=== PATIENT | female | born 1945 | race Caucasian/White ===

== ENCOUNTER → 2016-12-04 | Outpatient (CLI) | payer OTHER, BC | LOC: MMPC 09:00 | PROVIDERS: ATTEND Family Medicine | DX: K64.8 Other hemorrhoids (principal); J45.998 Other asthma; L40.8 Other psoriasis | CPT/HCPCS: 99213; G0463 ==

== ENCOUNTER → 2016-12-10 | Outpatient (CLI) | payer OTHER, BC | LOC: MMPC 11:11 | PROVIDERS: ATTEND Surgery | DX: K64.8 Other hemorrhoids (principal); Z86.010 Personal history of colon polyps | CPT/HCPCS: 99202 ==

== ENCOUNTER 2017-01-11 11:25 | Day surgery (SDC) | payer OTHER, BC ==
[~2017-01-11 11:25] MED LIST: LIDOCAINE W/ SODIUM BICARB 0.5 ML SYR ONE; Lactated Ringers 1,000 ML PRIMARY IV ONE; fentaNYL Inj 100 MCG/2 ML VIAL ONE
--- NOTE | 2017-01-11 13:01 | GEN.OPNOTE ---
Colonoscopy Procedure Note Surgery Date: 01/11/17 Preoperative Diagnosis: Rectal bleeding need for screening colonoscopy Postoperative Diagnosis: Diverticulosis in the sigmoid colon to the mid transverse colon Procedure: Colonoscopy with biopsy Surgeon: Michael Ndiaye MD Anesthesia Provider: Deepak Alcantara CRNA Anesthesia Type: MAC Indications: Patient has some rectal bleeding occasionally but really needs a screening colonoscopy Findings: Prep : Very good Cecum : Scope was advanced to the cecum ileocecal valve clearly identified patient known. Cecum Ascending : Ascending colon free from disease Transverse : Diverticulosis the mid transverse Sigmoid : Descending; within normal limits for diverticulosis extending from the sigmoid colon to the mid transverse Rectum : Patient has no second pathology in the rectum Digital Rectal Exam : No perirectal fissures abscesses noted A lubricated flexible colonoscope was inserted and passed to the blind end of the cecum.
[2017-01-11 14:22] VITALS: RESP 16; TEMP 98
--- NOTE | 2017-01-14 12:55 | MINORPROC ---
Outpatient History & Physical Chief Complaint: Patient needs a screening colonoscopy. She also has been having a little rectal pain and blood. She would like to have anything taken care of at the time of the colonoscopy Present Illness: Assessment HPI Past History: Please see old H&P and EMR History: General: WNL, HEENT: WNL, Respiratory: WNL, Cardiovascular: WNL, Gastrointestinal: WNL Physical Exam: Chest/Lungs: WNL, Heart: WNL, Abdomen: WNL Home Medications: Home Medications Medication Instructions Recorded Confirmed Type Clobetasol Propionate/Emoll 45 gm TP BID tube 11/08/14 01/11/17 History [Clobetasol Emollient 0.05% Crm] Fluticasone Propionate [Flonase] 2 spr NASAL QD 11/08/14 01/11/17 History Hydrocortisone [Proctozone-Hc] 30 gm RC BID PRN tube 11/08/14 01/11/17 History Pimecrolimus [Elidel] 100 gm TP BID tube 11/08/14 01/11/17 History Amlodipine Besylate 1 tab PO DAILY #90 tab 12/23/15 01/11/17 Clinic Fluticasone Propionate 30 gm TP BID #30 gm 12/23/15 01/11/17 Clinic Albuterol Sulfate [Ventolin Hfa] 2 puff INH Q4H PRN #1 inh 12/04/16 01/11/17 Clinic Alprazolam 0.5 mg PO QHS #60 tab 12/04/16 01/11/17 Clinic Spironolactone 1 tab PO 2-3XD tab 12/10/16 01/11/17 History Allergies/Adverse Reactions: Allergies Allergy/AdvReac Type Severity Reaction Status Date / Time codeine Allergy NOT Verified 01/11/17 11:55 APPLICABLE erythromycin base Allergy VOMITING Verified 01/11/17 11:55 Latex, Natural Rubber Allergy ITCHING Verified 01/11/17 11:55 meperidine HCl [From Demerol] Allergy NOT Verified 01/11/17 11:55 APPLICABLE silicone Allergy ITCHING Verified 01/11/17 11:55 Impression / Plan: Rectal bleeding and screening for colon cancer The patient will need a colonoscopy. The risks of the procedure and benefits were discussed with the patient. I have discussed the pathophysiology between polyps and colon cancer. I also discussed the reasons why we use a colonoscopy for screening method versus the other screening methods are available. The patient like to proceed with a colonoscopy, The procedure reset up at first available date. Anesthesia Plans: Sedation ASA Class: Class 2 : Mild Systemic Disease
== END 2017-01-11 13:23 | disposition home or self-care (01) ==
LOC: SDSC 11:25
PROVIDERS: ATTEND Surgery
DX: Z12.11 Encounter for screening for malignant neoplasm of colon (principal); K62.5 Hemorrhage of anus and rectum; K57.90 Diverticulosis of intestine, part unspecified, without perforation or abscess without bleeding
CPT/HCPCS: 45380 ×2; J2704; J3010; J7120

== ENCOUNTER → 2017-03-24 | Outpatient (CLI) | payer OTHER, BC | LOC: MMPC 09:00 | PROVIDERS: ATTEND Family Medicine | DX: K64.8 Other hemorrhoids (principal); F41.1 Generalized anxiety disorder; M54.5 Low back pain | CPT/HCPCS: 99213; G0463 ==